=== PATIENT | male | born 1945 | race Hispanic/Latino ===

== ENCOUNTER 2019-05-09 16:07 | Emergency (ER) | payer MEDICARE ==
--- NOTE | 2019-05-09 16:56 | Emergency Department Report ---
Blank Doc - Documentation Documentation: 73-year-old male that presents with a-fib. Denies any CP or SOB. HX of a-fib. This initial assessment/diagnostic orders/clinical plan/treatment(s) is/are subject to change based on patient's health status, clinical progression and re- assessment by fellow clinical providers in the ED. Further treatment and workup at subsequent clinical providers discretion. Patient/guardians urged not to elope from the ED as their condition may be serious if not clinically assessed and managed. Initial orders include: 1- Patient sent to MAIN ED for further evaluation and treatment 2- labs 3- EKG 4- CXR
--- NOTE | 2019-05-09 18:02 | XRay Report ---
CHEST 2 VIEWS INDICATION / CLINICAL INFORMATION: Chest Pain. COMPARISON: 03/24/2018 FINDINGS: SUPPORT DEVICES: None. HEART / MEDIASTINUM: No significant abnormality. LUNGS / PLEURA: No significant pulmonary or pleural abnormality. No pneumothorax. ADDITIONAL FINDINGS: No significant additional findings. IMPRESSION: 1. No acute findings. Signer Name: Zack Reinoso MD Signed: 05/09/2019 5:57 PM Workstation Name: [id number]
[2019-05-09 18:31] LABS: Basophils % (Auto) 0.2 % (0.0-1.8); Eosinophils # (Auto) 0.1 K/mm3 (0.0-0.4); Eosinophils % (Auto) 2.5 % (0.0-4.3); Hematocrit 44.2 % (35.5-45.6); Hemoglobin 15.1 gm/dl (11.8-15.2); Lymphocytes # (Auto) 1.7 K/mm3 (1.2-5.4); Lymphocytes % (Auto) 29.6 % (13.4-35.0); Mean Corpuscular HGB Conc 34 % (32-34); Mean Corpuscular Volume 91 fl (84-94); Monocytes # (Auto) 0.7 K/mm3 (0.0-0.8); Monocytes % (Auto) 11.7 % (0.0-7.3); Platelet Count 220 K/mm3 (140-440); Red Blood Count 4.87 M/mm3 (3.65-5.03); Red Cell Distribution Width 13.9 % (13.2-15.2)
[2019-05-09] MEDS ORDERED: NACL 0.9% 1000 ML 1,000 ML IV ONE (18:38)
[2019-05-09 18:56] LABS: Alanine Aminotransferase 26 units/L (7-56); BUN/Creatinine Ratio 18; Blood Urea Nitrogen 14 mg/dL (9-20); Calcium 8.9 mg/dL (8.4-10.2); Hemolysis Index 6
[2019-05-09 19:12] LABS: INR 1.02 (0.87-1.13)
[2019-05-09 19:20] LABS: Partial Thromboplastin Time 27.1 Sec. (24.2-36.6)
[2019-05-09 21:00] VITALS: BP 119/74
--- NOTE | 2019-05-09 21:06 | Emergency Department Report ---
ED Palpitations HPI - General Chief Complaint: Arrhythmia/Palpitations Stated Complaint: A FIB Time Seen by Provider: 05/09/19 18:34 Source: patient Mode of arrival: Ambulatory Limitations: No Limitations - History of Present Illness Initial Comments: Patient is a 73-year-old male with a past medical history of a paroxysmal atrial fibrillation that was diagnosed in March 2018 and resolved spontaneously who is presenting with palpitations. Patient states he was on anticoagulation for 3 miles. Patient states that he's been taking extended release metoprolol and is taking alternating doses of 12.5 and 25 mg daily. Patient states that earlier today he started having palpitations with mild shortness of breath. Patient denies chest pain cough cold congestion fevers or chills. Patient has some mild dizziness when the heart rate elevated.. - Related Data Home Medications Medication Instructions Recorded Confirmed Last Taken Ascorbic Acid [Vitamin C] 1,000 mg PO QDAY 03/28/18 03/28/18 Unknown Aspirin [Adult Aspirin] 81 mg PO BID 03/28/18 03/28/18 Unknown Cetirizine HCl [ZyrTEC 10mg cap] 10 mg PO QDAY 03/28/18 03/28/18 Unknown Cholecalciferol (Vitamin D3) 2,000 units PO QDAY 03/28/18 03/28/18 Unknown [Vitamin D3 2,000 UNIT CAP] Cyanocobalamin (Vitamin B-12) 1,000 mcg PO QDAY 03/28/18 03/28/18 Unknown [Vitamin B-12] Folic Acid [Folvite] 800 mcg PO QDAY 03/28/18 03/28/18 Unknown Glucosam/Chavez-Msm1/C/Ezra/Bosw 1,500 mg PO QDAY 03/28/18 03/28/18 Unknown [Glucosamine-Chondroitin Tablet] Lisinopril [Prinivil] 10 mg PO QDAY 03/28/18 03/28/18 Unknown Magnesium Citrate 200 mg PO TID 03/28/18 03/28/18 Unknown Multivit with Minerals/Lutein [Pub 1 tab PO QDAY 03/28/18 03/28/18 Unknown Multivitamin 50 Plus Tab] [place]-3 Fatty Acids/Fish Oil [Fish 1,000 mg PO TID 03/28/18 03/28/18 Unknown Oil] Ubidecarenone [Coq-10] 10 mg PO QDAY 03/28/18 03/28/18 Unknown Vit A/Vit C/Vit E/Zinc/Copper 1 tab PO BID 03/28/18 03/28/18 Unknown [Icaps Areds Formula Dr Tablet] Vit B6/Me-Thfolate/Me-B12/Ala 50 mg PO QDAY 03/28/18 03/28/18 Unknown [Podiapn Capsule] Vitamin E 400 unit PO QDAY 03/28/18 03/28/18 Unknown metFORMIN [Glucophage] 500 mg PO TID 03/28/18 03/28/18 Unknown Previous Rx's Medication Instructions Recorded Last Taken Type Apixaban [Eliquis] 5 mg PO Q12H #60 tablet 05/09/19 Unknown Rx Metoprolol [Lopressor TAB] 12.5 mg PO BID #60 tablet 05/09/19 Unknown Rx Allergies Allergy/AdvReac Type Severity Reaction Status Date / Time simvastatin Allergy Nausea Verified 03/28/18 05:43 ED Review of Systems ROS: Stated complaint: A FIB Other details as noted in HPI Comment: All other systems reviewed and negative ED Past Medical Hx - Past Medical History Previous Medical History?: Yes Hx Congestive Heart Failure: No Hx Diabetes: Yes Hx Arthritis: Yes Hx Asthma: No Hx COPD: No Additional medical history: A fib - Surgical History Past Surgical History?: Yes Additional Surgical History: right ankle surgery after ankle fx - Social History Smoking Status: Never Smoker Substance Use Type: Alcohol - Medications Home Medications: Home Medications Medication Instructions Recorded Confirmed Last Taken Type Ascorbic Acid [Vitamin C] 1,000 mg PO QDAY 03/28/18 03/28/18 Unknown History Aspirin [Adult Aspirin] 81 mg PO BID 03/28/18 03/28/18 Unknown History Cetirizine HCl [ZyrTEC 10mg cap] 10 mg PO QDAY 03/28/18 03/28/18 Unknown History Cholecalciferol (Vitamin D3) 2,000 units PO QDAY 03/28/18 03/28/18 Unknown History [Vitamin D3 2,000 UNIT CAP] Cyanocobalamin (Vitamin B-12) 1,000 mcg PO QDAY 03/28/18 03/28/18 Unknown History [Vitamin B-12] Folic Acid [Folvite] 800 mcg PO QDAY 03/28/18 03/28/18 Unknown History Glucosam/Chavez-Msm1/C/Ezra/Bosw 1,500 mg PO QDAY 03/28/18 03/28/18 Unknown History [Glucosamine-Chondroitin Tablet] Lisinopril [Prinivil] 10 mg PO QDAY 03/28/18 03/28/18 Unknown History Magnesium Citrate 200 mg PO TID 03/28/18 03/28/18 Unknown History Multivit with Minerals/Lutein [Pub 1 tab PO QDAY 03/28/18 03/28/18 Unknown History Multivitamin 50 Plus Tab] [place]-3 Fatty Acids/Fish Oil [Fish 1,000 mg PO TID 03/28/18 03/28/18 Unknown History Oil] Ubidecarenone [Coq-10] 10 mg PO QDAY 03/28/18 03/28/18 Unknown History Vit A/Vit C/Vit E/Zinc/Copper 1 tab PO BID 03/28/18 03/28/18 Unknown History [Icaps Areds Formula Dr Tablet] Vit B6/Me-Thfolate/Me-B12/Ala 50 mg PO QDAY 03/28/18 03/28/18 Unknown History [Podiapn Capsule] Vitamin E 400 unit PO QDAY 03/28/18 03/28/18 Unknown History metFORMIN [Glucophage] 500 mg PO TID 03/28/18 03/28/18 Unknown History Apixaban [Eliquis] 5 mg PO Q12H #60 tablet 05/09/19 Unknown Rx Metoprolol [Lopressor TAB] 12.5 mg PO BID #60 tablet 05/09/19 Unknown Rx ED Physical Exam - General Limitations: No Limitations General appearance: alert, in no apparent distress - Head Head exam: Present: atraumatic, normocephalic - Eye Eye exam: Present: normal appearance - ENT ENT exam: Present: mucous membranes moist - Neck Neck exam: Present: normal inspection - Respiratory Respiratory exam: Present: normal lung sounds bilaterally. Absent: respiratory distress, wheezes, rales, rhonchi - Cardiovascular Cardiovascular Exam: Present: normal rhythm, tachycardia, irregular rhythm. Absent: systolic murmur, diastolic murmur, rubs, gallop - GI/Abdominal GI/Abdominal exam: Present: soft, normal bowel sounds. Absent: distended, tenderness, guarding, rebound - Rectal Rectal exam: Present: deferred - Extremities Exam Extremities exam: Present: normal inspection - Back Exam Back exam: Present: normal inspection - Neurological Exam Neurological exam: Present: alert, oriented X3 - Psychiatric Psychiatric exam: Present: normal affect, normal mood - Skin Skin exam: Present: warm, dry, intact, normal color. Absent: rash ED Course Vital Signs 05/09/19 05/09/19 05/09/19 16:47 17:48 19:04 Temperature 98.2 F Pulse Rate 97 H 80 Respiratory 17 16 18 Rate Blood Pressure 119/65 Blood Pressure 117/90 [Left] O2 Sat by Pulse 96 96 95 Oximetry 05/09/19 20:59 Temperature Pulse Rate 87 Respiratory 20 Rate Blood Pressure Blood Pressure 119/74 [Left] O2 Sat by Pulse 96 Oximetry ED Medical Decision Making - Lab Data Result diagrams: 05/09/19 17:57 05/09/19 17:57 - EKG Data -: EKG Interpreted by [place] - EKG Data 05/09/19 21:03 EKG shows a atrial fibrillation rhythm with a rate of 86. [place] is normal and intervals are normal as well. There is no evidence of ST segment elevation or depression. Time of interpretation is 1937 - Radiology Data Radiology results: report reviewed (chest x-ray is within normal limits and shows no acute process) - Medical Decision Making Patient took a 25 mg metoprolol prior to arrival and his rate is actually been within normal limits since he's been here. Patient states that he is asymptomatic at this time. Spoke with cardiology Dr. Patel who agreed that the patient should be restarted umbilicus. Patient to be started on 12.5 mg of metoprolol BID to better control his heart rate and the patient will have follow with his claims auditor. Critical care attestation.: If time is entered above; I have spent that time in minutes in the direct care of this critically ill patient, excluding procedure time. ED Disposition Clinical Impression: Atrial fibrillation with rapid ventricular response Disposition: -01 TO HOME OR SELFCARE Is pt being admited?: No Does the pt Need Aspirin: No Condition: Stable Instructions: Atrial Fibrillation (ED) Prescriptions: Apixaban [Eliquis] 5 mg PO Q12H #60 tablet Metoprolol [Lopressor TAB] 12.5 mg PO BID #60 tablet
== END 2019-05-09 21:34 | disposition home or self-care (01) ==
LOC: ED 16:07
DX: I48.91 Unspecified atrial fibrillation (principal); R42 Dizziness and giddiness; I10 Essential (primary) hypertension; E11.9 Type 2 diabetes mellitus without complications; M19.90 Unspecified osteoarthritis, unspecified site; Z98.890 Other specified postprocedural states; Z79.899 Other long term (current) drug therapy; Z88.8 Allergy status to other drugs, medicaments and biological substances; Z79.84 Long term (current) use of oral hypoglycemic drugs
CPT/HCPCS: 36415; 71046; 80053; 84484; 85025; 85610; 85730; 93005; 93010; 96360; 99284; J7030

== ENCOUNTER 2019-07-20 18:32 | Observation (INO) | payer MEDICARE ==
--- NOTE | 2019-07-20 18:50 | Event Note ---
ED Screening Note Date of service: 07/20/19 Time: 18:45 ED Screening Note: 74 y o presents after going to [facility] to ekg resulted in a fib no cp, sob, PMH: a fib This initial assessment/diagnostic orders/clinical plan/treatment(s) is/are subject to change based on patients health status, clinical progression and re- assessment by fellow clinical providers in the ED. Further treatment and workup at subsequent clinical providers discretion. Patient/guardian urged not to elope from the ED as their condition may be serious if not clinically assessed and managed. Initial orders include: labs main side eval
[2019-07-20 19:43] LABS: Basophils % (Auto) 0.4 % (0.0-1.8); Eosinophils # (Auto) 0.2 K/mm3 (0.0-0.4); Eosinophils % (Auto) 2.4 % (0.0-4.3); Hematocrit 44.8 % (35.5-45.6); Hemoglobin 15.4 gm/dl (11.8-15.2); Lymphocytes # (Auto) 2.3 K/mm3 (1.2-5.4); Lymphocytes % (Auto) 33.3 % (13.4-35.0); Mean Corpuscular HGB Conc 34 % (32-34); Mean Corpuscular Volume 92 fl (84-94); Monocytes # (Auto) 0.7 K/mm3 (0.0-0.8); Monocytes % (Auto) 10.1 % (0.0-7.3); Platelet Count 222 K/mm3 (140-440); Red Blood Count 4.89 M/mm3 (3.65-5.03)
[2019-07-20 19:54] LABS: INR 0.93 (0.87-1.13)
[2019-07-20 20:00] LABS: BUN/Creatinine Ratio 19; Blood Urea Nitrogen 15 mg/dL (9-20); Calcium 8.9 mg/dL (8.4-10.2); Hemolysis Index 50
--- NOTE | 2019-07-20 21:29 | Emergency Department Report ---
ED Palpitations HPI - General Chief Complaint: Arrhythmia/Palpitations Stated Complaint: AFIB Time Seen by Provider: 07/20/19 21:11 Source: patient Mode of arrival: Ambulatory Limitations: No Limitations - History of Present Illness Initial Comments: Patient is a 74-year-old male who presents the emergency room with complaints of palpitations that began 2 days ago. He states that he occasionally feels SOB during the palpitations. He denies any chest pain, leg swelling, syncope. Patient has a past medical history of paroxysmal A. fib diagnosed in 2017, hypertension, diabetes. he was evaluated in the emergency department in april 2019 for the same complaint and was started on metoprolol 25 mg and eliquis. Patient states that he has been taking the metoprolol as prescribed but never began taking the Eliquis. He states that he saw his forest nursery worker Dr. Garces after his emergency room visit in April 2019 and elected to not take the eliquis therapy. Patient had a heart catheterization which show mild nonobstructive irregularites and EF of 50-55% and echo in 2017. - Related Data Home Medications Medication Instructions Recorded Confirmed Last Taken Ascorbic Acid [Vitamin C] 1,000 mg PO QDAY 03/28/18 07/21/19 Unknown Cetirizine HCl [ZyrTEC 10mg cap] 10 mg PO QDAY 03/28/18 07/21/19 Unknown Cholecalciferol (Vitamin D3) 2,000 units PO QDAY 03/28/18 07/21/19 Unknown [Vitamin D3 2,000 UNIT CAP] Cyanocobalamin (Vitamin B-12) 1,000 mcg PO QDAY 03/28/18 07/21/19 Unknown [Vitamin B-12] Folic Acid [Folvite] 800 mcg PO QDAY 03/28/18 07/21/19 Unknown Glucosam/Chavez-Msm1/C/Ezra/Bosw 1,500 mg PO QDAY 03/28/18 07/21/19 Unknown [Glucosamine-Chondroitin Tablet] Magnesium Citrate 200 mg PO TID 03/28/18 07/21/19 Unknown Multivit with Minerals/Lutein [Pub 1 tab PO QDAY 03/28/18 07/21/19 Unknown Multivitamin 50 Plus Tab] [place]-3 Fatty Acids/Fish Oil [Fish 1,000 mg PO TID 03/28/18 07/21/19 Unknown Oil] Ubidecarenone [Coq-10] 10 mg PO QDAY 03/28/18 07/21/19 Unknown Vit A/Vit C/Vit E/Zinc/Copper 1 tab PO BID 03/28/18 07/21/19 Unknown [Icaps Areds Formula Dr Tablet] Vit B6/Me-Thfolate/Me-B12/Ala 50 mg PO QDAY 03/28/18 07/21/19 Unknown [Podiapn Capsule] Vitamin E 400 unit PO QDAY 03/28/18 07/21/19 Unknown lisinopriL [Prinivil] 10 mg PO QDAY 03/28/18 07/21/19 Unknown metFORMIN [Glucophage] 500 mg PO TID 03/28/18 07/21/19 Unknown Previous Rx's Medication Instructions Recorded Last Taken Type Metoprolol [Lopressor TAB] 12.5 mg PO BID #60 tablet 05/09/19 Unknown Rx Amiodarone [Cordarone 200 MG TAB] 200 mg PO DAILY #30 tablet 07/21/19 Unknown Rx Apixaban [Eliquis] 5 mg PO Q12H #60 tablet 07/21/19 Unknown Rx Allergies Allergy/AdvReac Type Severity Reaction Status Date / Time simvastatin Allergy Nausea Verified 03/28/18 05:43 ED Review of Systems ROS: Stated complaint: AFIB Other details as noted in HPI ED Past Medical Hx - Past Medical History Previous Medical History?: Yes Hx Congestive Heart Failure: No Hx Diabetes: Yes Hx Arthritis: Yes Hx Asthma: No Hx COPD: No Additional medical history: A fib - Surgical History Past Surgical History?: Yes Additional Surgical History: right ankle surgery after ankle fx - Social History Smoking Status: Never Smoker Substance Use Type: Alcohol - Medications Home Medications: Home Medications Medication Instructions Recorded Confirmed Last Taken Type Ascorbic Acid [Vitamin C] 1,000 mg PO QDAY 03/28/18 07/21/19 Unknown History Cetirizine HCl [ZyrTEC 10mg cap] 10 mg PO QDAY 03/28/18 07/21/19 Unknown History Cholecalciferol (Vitamin D3) 2,000 units PO QDAY 03/28/18 07/21/19 Unknown History [Vitamin D3 2,000 UNIT CAP] Cyanocobalamin (Vitamin B-12) 1,000 mcg PO QDAY 03/28/18 07/21/19 Unknown History [Vitamin B-12] Folic Acid [Folvite] 800 mcg PO QDAY 03/28/18 07/21/19 Unknown History Glucosam/Chavez-Msm1/C/Ezra/Bosw 1,500 mg PO QDAY 03/28/18 07/21/19 Unknown History [Glucosamine-Chondroitin Tablet] Magnesium Citrate 200 mg PO TID 03/28/18 07/21/19 Unknown History Multivit with Minerals/Lutein [Pub 1 tab PO QDAY 03/28/18 07/21/19 Unknown History Multivitamin 50 Plus Tab] [place]-3 Fatty Acids/Fish Oil [Fish 1,000 mg PO TID 03/28/18 07/21/19 Unknown History Oil] Ubidecarenone [Coq-10] 10 mg PO QDAY 03/28/18 07/21/19 Unknown History Vit A/Vit C/Vit E/Zinc/Copper 1 tab PO BID 03/28/18 07/21/19 Unknown History [Icaps Areds Formula Dr Tablet] Vit B6/Me-Thfolate/Me-B12/Ala 50 mg PO QDAY 03/28/18 07/21/19 Unknown History [Podiapn Capsule] Vitamin E 400 unit PO QDAY 03/28/18 07/21/19 Unknown History lisinopriL [Prinivil] 10 mg PO QDAY 03/28/18 07/21/19 Unknown History metFORMIN [Glucophage] 500 mg PO TID 03/28/18 07/21/19 Unknown History Metoprolol [Lopressor TAB] 12.5 mg PO BID #60 tablet 05/09/19 07/21/19 Unknown Rx Amiodarone [Cordarone 200 MG TAB] 200 mg PO DAILY #30 tablet 07/21/19 Unknown Rx Apixaban [Eliquis] 5 mg PO Q12H #60 tablet 07/21/19 Unknown Rx ED Physical Exam - General Limitations: No Limitations General appearance: alert, in no apparent distress - Head Head exam: Present: atraumatic, normocephalic - Eye Eye exam: Present: normal appearance - ENT ENT exam: Present: mucous membranes moist - Respiratory Respiratory exam: Present: normal lung sounds bilaterally. Absent: respiratory distress, wheezes, rales, rhonchi, stridor, chest wall tenderness, accessory muscle use, decreased breath sounds, prolonged expiratory - Cardiovascular Cardiovascular Exam: Present: regular rate, irregular rhythm, normal heart sounds. Absent: systolic murmur, diastolic murmur, rubs, gallop - Extremities Exam Extremities exam: Absent: pedal edema - Neurological Exam Neurological exam: Present: alert, oriented X3 - Psychiatric Psychiatric exam: Present: normal affect, normal mood - Skin Skin exam: Present: warm, dry, intact ED Course Vital Signs 07/20/19 07/20/19 07/20/19 18:46 21:20 21:23 Temperature 97.3 F L Pulse Rate 100 H Respiratory 16 18 Rate Blood Pressure 120/76 108/65 Blood Pressure [Left] O2 Sat by Pulse 100 100 99 Oximetry 07/20/19 07/20/19 07/20/19 21:30 21:45 21:57 Temperature Pulse Rate 76 79 78 Respiratory 24 17 18 Rate Blood Pressure 111/77 111/77 111/77 Blood Pressure [Left] O2 Sat by Pulse 97 97 97 Oximetry 07/20/19 07/20/19 07/20/19 22:00 22:15 22:30 Temperature Pulse Rate 77 Respiratory 19 Rate Blood Pressure 111/77 127/79 114/78 Blood Pressure [Left] O2 Sat by Pulse 98 97 Oximetry 07/20/19 07/20/19 07/20/19 22:45 23:00 23:03 Temperature Pulse Rate 79 83 73 Respiratory 25 H 22 Rate Blood Pressure 114/78 123/84 Blood Pressure 130/81 [Left] O2 Sat by Pulse 97 97 Oximetry 07/20/19 07/20/19 07/20/19 23:15 23:30 23:45 Temperature Pulse Rate 65 65 48 L Respiratory 23 22 16 Rate Blood Pressure 122/74 119/77 137/71 Blood Pressure [Left] O2 Sat by Pulse 99 99 100 Oximetry 07/21/19 07/21/19 07/21/19 00:00 00:15 00:30 Temperature Pulse Rate 55 L 56 L 57 L Respiratory 17 23 19 Rate Blood Pressure 108/68 105/65 109/66 Blood Pressure [Left] O2 Sat by Pulse 100 98 99 Oximetry 07/21/19 00:45 Temperature Pulse Rate 57 L Respiratory 17 Rate Blood Pressure 97/56 Blood Pressure [Left] O2 Sat by Pulse 98 Oximetry - Consultations Consultation #1: 07/20/19 22:[address] Weaver, cardiology, who states to admit the patient due to s ymptomatic PAF, he recommended giving the patient 300 mg IV of amiodarone now and to start pt on PO amiodarone 200 mg daily and he will evaluate pt in the hospital during admission, advised to admit to hospitalist, he states that they can start anticoagulation while in the hospital Consultation #2: 07/20/19 22:[address] Su, hospitalist and discussed the forest nursery worker recommendations, she will accept and resume care of patient, will admit to hospital ED Medical Decision Making - Lab Data Result diagrams: 07/20/19 19:18 07/20/19 19:18 Lab Results 07/20/19 07/20/19 07/20/19 Range/Units 00:30 19:18 19:18 WBC 6.9 (4.5-11.0) K/mm3 RBC 4.89 (3.65-5.03) M/mm3 Hgb 15.4 H (11.8-15.2) gm/dl Hct 44.8 (35.5-45.6) % MCV 92 (84-94) fl MCH 31 (28-32) pg MCHC 34 (32-34) % RDW 14.0 (13.2-15.2) % Plt Count 222 (140-440) K/mm3 Lymph % (Auto) 33.3 (13.4-35.0) % [place] % (Auto) 10.1 H (0.0-7.3) % Eos % (Auto) 2.4 (0.0-4.3) % Baso % (Auto) 0.4 (0.0-1.8) % Lymph # 2.3 (1.2-5.4) K/mm3 [place] # 0.7 (0.0-0.8) K/mm3 Eos # 0.2 (0.0-0.4) K/mm3 Baso # 0.0 (0.0-0.1) K/mm3 Seg Neutrophils % 53.8 (40.0-70.0) % Seg Neutrophils # 3.7 (1.8-7.7) K/mm3 PT 12.6 (12.2-14.9) Sec. INR 0.93 (0.87-1.13) Sodium (137-145) mmol/L Potassium (3.6-5.0) mmol/L Chloride (98-107) mmol/L Carbon Dioxide (22-30) mmol/L Anion Gap mmol/L BUN (9-20) mg/dL Creatinine (0.8-1.5) mg/dL Estimated GFR ml/min BUN/Creatinine Ratio % Glucose (75-100) mg/dL Hemoglobin A1c 8.6 H (4-6) % Calcium (8.4-10.2) mg/dL Magnesium (1.7-2.3) mg/dL Total Creatine Kinase (55-170) units/L CK-MB (CK-2) (0.0-4.0) ng/mL CK-MB (CK-2) Rel Index (0-4) Troponin T (0.00-0.029) ng/mL TSH (0.270-4.200) mlU/mL 07/20/19 07/20/19 Range/Units 19:18 19:18 WBC (4.5-11.0) K/mm3 RBC (3.65-5.03) M/mm3 Hgb (11.8-15.2) gm/dl Hct (35.5-45.6) % MCV (84-94) fl MCH (28-32) pg MCHC (32-34) % RDW (13.2-15.2) % Plt Count (140-440) K/mm3 Lymph % (Auto) (13.4-35.0) % [place] % (Auto) (0.0-7.3) % Eos % (Auto) (0.0-4.3) % Baso % (Auto) (0.0-1.8) % Lymph # (1.2-5.4) K/mm3 [place] # (0.0-0.8) K/mm3 Eos # (0.0-0.4) K/mm3 Baso # (0.0-0.1) K/mm3 Seg Neutrophils % (40.0-70.0) % Seg Neutrophils # (1.8-7.7) K/mm3 PT (12.2-14.9) Sec. INR (0.87-1.13) Sodium 136 L (137-145) mmol/L Potassium 4.6 (3.6-5.0) mmol/L Chloride 97.9 L (98-107) mmol/L Carbon Dioxide 27 (22-30) mmol/L Anion Gap 16 mmol/L BUN 15 (9-20) mg/dL Creatinine 0.8 (0.8-1.5) mg/dL Estimated GFR > 60 ml/min BUN/Creatinine Ratio 19 % Glucose 219 H (75-100) mg/dL Hemoglobin A1c (4-6) % Calcium 8.9 (8.4-10.2) mg/dL Magnesium 2.40 H (1.7-2.3) mg/dL Total Creatine Kinase 80 (55-170) units/L CK-MB (CK-2) 2.0 (0.0-4.0) ng/mL CK-MB (CK-2) Rel Index 2.5 (0-4) Troponin T < 0.010 (0.00-0.029) ng/mL TSH 2.950 (0.270-4.200) mlU/mL - EKG Data EKG shows normal: axis, intervals, QRS complexes Rate: normal - EKG Data 07/20/19 22:13 irregular rate non specific T wave inversion diffusely no STEMI - Medical Decision Making Patient is a 74-year-old male who presents the emergency room with complaints of palpitations that began 2 days ago. He states that he occasionally feels SOB during the palpitations. He denies any chest pain, leg swelling, syncope. Patient has a past medical history of paroxysmal A. fib diagnosed in 2017, hypertension, diabetes. he was evaluated in the emergency department in april 2019 for the same complaint and was started on metoprolol 25 mg and eliquis. Patient states that he has been taking the metoprolol as prescribed but never began taking the Eliquis. He states that he saw his forest nursery worker Dr. Garces after his emergency room visit in April 2019 and elected to not take the eliquis therapy. Patient had a heart catheterization which show mild nonobstructive irregularites and EF of 50-55% and echo in 2018. initial vitals with mildly elevated HR which improved upon repeat. EKG with afib with controlled rate. labs are stable. spoke with Dr. Wevaer, cardiology, who states to admit the patient due to symptomatic PAF, he recommended giving the patient 300 mg IV of amiodarone now and to start pt on PO amiodarone 200 mg daily and he will evaluate pt in the hospital during admission, advised to admit to [facility], he states that they can start anticoagulation while in the hospital. spoke with Dr. Su, hospitalist and discussed the forest nursery worker recommendations, she will accept and resume care of patient, will admit to hospital Critical care attestation.: If time is entered above; I have spent that time in minutes in the direct care of this critically ill patient, excluding procedure time. ED Disposition Clinical Impression: Paroxysmal A-fib Disposition: [id number] OP ADMIT IP TO THIS HOSP Is pt being admited?: Yes Does the pt Need Aspirin: No Condition: Stable Time of Disposition: 22:12
[2019-07-20] MEDS ORDERED: AMIODARONE 150 MG/3 ML INJ IV ONE ×2 (22:02→22:57)
[2019-07-20] MEDS ORDERED: DEXTROSE 50% IN WATER (25GM) 50 ML SYRINGE IV PRN (22:30)
[2019-07-20] MEDS ORDERED: ALBUTEROL 2.5 MG/3 ML NEBU IH PRN (22:30)
[2019-07-20] MEDS ORDERED: ONDANSETRON 4 MG/2 ML INJ IV PRN (22:30)
[2019-07-20] MEDS ORDERED: ACETAMINOPHEN 325 MG TAB PO PRN (22:30)
--- NOTE | 2019-07-20 22:59 | History and Physical Report ---
<ELIZABETHANALI Raman - Last Filed: 07/20/19 23:36> History of Present Illness Date of examination: 07/20/19 Date of admission: 07/20/2019 Chief complaint: Palpitations, shortness of breath History of present illness: 73-year-old male with history of paroxysmal atrial fibrillation, hypertension, diabetes who presents to [facility] ED with complaints of shortness of breath and palpitation for the last 3 days. Patient's is present at his bedside and has assisted with providing history. Patient states that he has experienced shortness of breath and palpitation in the morning shortly after getting out of bed for the last 3 days. His shortness of breath resolved as the day progressed. He continued to check his pulse throughout the day and found his pulse to be irregular. Patient states that he has a history of A. fib and he is compliant with metoprolol. He states that his irregular heartbeat (atrial fibrillation) usually comes and goes approximately every 2 to 3 months, and for the most part he is in sinus rhythm. He decided come in for further evaluation and treatment because his irregular heart rate had lasted for 3 days. After being diagnosed with atrial fibrillation in 2018, he was on Eliquis for approximately 3 months. He discussed rsk and benefits it with Dr. Garces before d/c Eliquis. Denies dyspnea with exertion, headache, fever, nausea, vomiting, cough, hemoptysis, or hematemesis. Review of medical record shows patient was seen in ED in May 08 with similar complaints. He was discharged with prescription for metoprolol 25 mg twice daily and Eliquis. Pt states he was compliant with metoprolol treatment but decided not to fill the prescription for Eliquis. Past History Past Medical History: atrial fib (Paroxysmal), diabetes, hypertension Past Surgical History: Other (right ankle surgery ) Social history: , full code. denies: smoking, alcohol abuse Family history: no significant family history Medications and Allergies Allergies Allergy/AdvReac Type Severity Reaction Status Date / Time simvastatin Allergy Nausea Verified 03/28/18 05:43 Home Medications Medication Instructions Recorded Confirmed Last Taken Type Ascorbic Acid [Vitamin C] 1,000 mg PO QDAY 03/28/18 07/21/19 Unknown History Aspirin [Adult Aspirin] 81 mg PO BID 03/28/18 07/21/19 Unknown History Cetirizine HCl [ZyrTEC 10mg cap] 10 mg PO QDAY 03/28/18 07/21/19 Unknown History Cholecalciferol (Vitamin D3) 2,000 units PO QDAY 03/28/18 07/21/19 Unknown History [Vitamin D3 2,000 UNIT CAP] Cyanocobalamin (Vitamin B-12) 1,000 mcg PO QDAY 03/28/18 07/21/19 Unknown History [Vitamin B-12] Folic Acid [Folvite] 800 mcg PO QDAY 03/28/18 07/21/19 Unknown History Glucosam/Chavez-Msm1/C/Ezra/Bosw 1,500 mg PO QDAY 03/28/18 07/21/19 Unknown History [Glucosamine-Chondroitin Tablet] Magnesium Citrate 200 mg PO TID 03/28/18 07/21/19 Unknown History Multivit with Minerals/Lutein [Pub 1 tab PO QDAY 03/28/18 07/21/19 Unknown History Multivitamin 50 Plus Tab] [place]-3 Fatty Acids/Fish Oil [Fish 1,000 mg PO TID 03/28/18 07/21/19 Unknown History Oil] Ubidecarenone [Coq-10] 10 mg PO QDAY 03/28/18 07/21/19 Unknown History Vit A/Vit C/Vit E/Zinc/Copper 1 tab PO BID 03/28/18 07/21/19 Unknown History [Icaps Areds Formula Dr Tablet] Vit B6/Me-Thfolate/Me-B12/Ala 50 mg PO QDAY 03/28/18 07/21/19 Unknown History [Podiapn Capsule] Vitamin E 400 unit PO QDAY 03/28/18 07/21/19 Unknown History lisinopriL [Prinivil] 10 mg PO QDAY 03/28/18 07/21/19 Unknown History metFORMIN [Glucophage] 500 mg PO TID 03/28/18 07/21/19 Unknown History Apixaban [Eliquis] 5 mg PO Q12H #60 tablet 05/09/19 07/21/19 Unknown Rx Metoprolol [Lopressor TAB] 12.5 mg PO BID #60 tablet 05/09/19 07/21/19 Unknown Rx Active Meds: Active Medications Acetaminophen (Tylenol) 650 mg PO Q4H PRN PRN Reason: Pain MILD(1-3)/Fever >100.5/CAMP Albuterol (Proventil) 2.5 mg IH Q3HRT PRN PRN Reason: Shortness Of Breath Amiodarone HCl (Cordarone) 200 mg PO DAILY [facility] Dextrose (D50w (25gm) Syringe) 0 ml IV Q30MIN PRN; Protocol PRN Reason: Hypoglycemia Docusate Sodium (Colace) 100 mg PO BID [facility] Heparin Sodium (Porcine) (Heparin) 5,000 unit SUB-Q Q12HR [facility] Insulin Human Lispro (Humalog) 0 unit SUB-Q ACHS ERIN; Protocol Metformin HCl (Glucophage) 500 mg PO TIDWM [facility] Metoprolol Tartrate (Metoprolol) 12.5 mg PO BID [facility] Ondansetron HCl (Zofran) 4 mg IV Q8H PRN PRN Reason: Nausea And Vomiting Sodium Chloride (Sodium Chloride Flush Syringe 10 Ml) 10 ml IV BID ERIN Sodium Chloride (Sodium Chloride Flush Syringe 10 Ml) 10 ml IV PRN PRN PRN Reason: LINE FLUSH Review of Systems All systems: negative Cardiovascular: palpitations, shortness of breath Exam - Physical Exam Narrative exam: Physical exam General appearance: Present: No acute distress, alert and oriented 3, obese, well-developed, older adult male - EENT Eyes: Present: PERRL, EOM intact ENT: hearing intact, normal dentition - Neck Neck: Present: supple, normal ROM - Respiratory Respiratory effort: Non-labored Respiratory: Clear throughout - Cardiovascular Heart rate: 85 (bpm) Rhythm: Atrial fibrillation Heart Sounds: Present: S1 & S2. Absent: rub, click - Extremities Extremities: no ischemia, pulses intact, - Peripheral Assessment Peripheral Pulses: within normal limits - Abdominal General gastrointestinal: Obese, soft, non-tender, normal bowel sounds - Integumentary Integumentary: Present: warm, dry - Musculoskeletal Musculoskeletal: Able to move all extremities -Neurological Neurological: CN II-XII intact - Psychiatric Psychiatric: Appropriate for situation ,cooperative - Constitutional Vitals: Temp Pulse Resp BP Pulse Ox 97.3 F L 79 17 111/77 97 07/20/19 18:46 07/20/19 21:45 07/20/19 21:45 07/20/19 21:45 07/20/19 21:45 Results - Labs CBC & Chem 7: 07/20/19 19:18 07/20/19 19:18 Labs: Laboratory Last Values WBC 6.9 K/mm3 (4.5-11.0) 07/20/19 19:18 RBC 4.89 M/mm3 (3.65-5.03) 07/20/19 19:18 Hgb 15.4 gm/dl (11.8-15.2) H 07/20/19 19:18 Hct 44.8 % (35.5-45.6) 07/20/19 19:18 MCV 92 fl (84-94) 07/20/19 19:18 MCH 31 pg (28-32) 07/20/19 19:18 MCHC 34 % (32-34) 07/20/19 19:18 RDW 14.0 % (13.2-15.2) 07/20/19 19:18 Plt Count 222 K/mm3 (140-440) 07/20/19 19:18 Lymph % (Auto) 33.3 % (13.4-35.0) 07/20/19 19:18 [place] % (Auto) 10.1 % (0.0-7.3) H 07/20/19 19:18 Eos % (Auto) 2.4 % (0.0-4.3) 07/20/19 19:18 Baso % (Auto) 0.4 % (0.0-1.8) 07/20/19 19:18 Lymph # 2.3 K/mm3 (1.2-5.4) 07/20/19 19:18 [place] # 0.7 K/mm3 (0.0-0.8) 07/20/19 19:18 Eos # 0.2 K/mm3 (0.0-0.4) 07/20/19 19:18 Baso # 0.0 K/mm3 (0.0-0.1) 07/20/19 19:18 Seg Neutrophils % 53.8 % (40.0-70.0) 07/20/19 19:18 Seg Neutrophils # 3.7 K/mm3 (1.8-7.7) 07/20/19 19:18 PT 12.6 Sec. (12.2-14.9) 07/20/19 19:18 INR 0.93 (0.87-1.13) 07/20/19 19:18 Sodium 136 mmol/L (137-145) L 07/20/19 19:18 Potassium 4.6 mmol/L (3.6-5.0) 07/20/19 19:18 Chloride 97.9 mmol/L (98-107) L 07/20/19 19:18 Carbon Dioxide 27 mmol/L (22-30) 07/20/19 19:18 Anion Gap 16 mmol/L 07/20/19 19:18 BUN 15 mg/dL (9-20) 07/20/19 19:18 Creatinine 0.8 mg/dL (0.8-1.5) 07/20/19 19:18 Estimated GFR > 60 ml/min 07/20/19 19:18 BUN/Creatinine Ratio 19 % 07/20/19 19:18 Glucose 219 mg/dL (75-100) H 07/20/19 19:18 Calcium 8.9 mg/dL (8.4-10.2) 07/20/19 19:18 Magnesium 2.40 mg/dL (1.7-2.3) H 07/20/19 19:18 Total Creatine Kinase 80 units/L (55-170) 07/20/19 19:18 CK-MB (CK-2) 2.0 ng/mL (0.0-4.0) 07/20/19 19:18 CK-MB (CK-2) Rel Index 2.5 (0-4) 07/20/19 19:18 Troponin T < 0.010 ng/mL (0.00-0.029) 07/20/19 19:18 TSH 2.950 mlU/mL (0.270-4.200) 07/20/19 19:18 Assessment and Plan Assessment and plan: 73-year-old male with history of paroxysmal atrial fibrillation, hypertension, diabetes who presents to [facility] ED with complaints of shortness of breath and palpitation for the last 3 days. Paroxysmal atrial fibrillation -History of A. 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 amiodarone 200 mg daily per cardiology recs HTN -Monitor BP -Resume home hypertensive meds DM -POC BG monitoring -Resume Metformin home dose -SSI coverage prn -HgbA1C pending Obesity -BMI 39.5kg -Diet and lifestyle modifications -May benefit from OP weight mgmt program DVT PPX -On Heparin -On SCD's Advance Directives: No VTE prophylaxis?: Chemical Plan of care discussed with patient/family: Yes <SHAHEED MCGOWAN - Last Filed: 07/21/19 03:12> History of Present Illness Date of admission: 07/20/19 22:30 Medications and Allergies Active Meds: Active Medications Acetaminophen (Tylenol) 650 mg PO Q4H PRN PRN Reason: Pain MILD(1-3)/Fever >100.5/CAMP Albuterol (Proventil) 2.5 mg IH Q3HRT PRN PRN Reason: Shortness Of Breath Amiodarone HCl (Cordarone) 200 mg PO DAILY [facility] Dextrose (D50w (25gm) Syringe) 0 ml IV Q30MIN PRN; Protocol PRN Reason: Hypoglycemia Docusate Sodium (Colace) 100 mg PO BID [facility] Enoxaparin Sodium (Enoxaparin) 110 mg 1 mg/kg (110 mg) SUB-Q Q12H [facility] Insulin Human Lispro (Humalog) 0 unit SUB-Q ACHS ERIN; Protocol Metformin HCl (Glucophage) 500 mg PO TIDWM [facility] Ondansetron HCl (Zofran) 4 mg IV Q8H PRN PRN Reason: Nausea And Vomiting Sodium Chloride (Sodium Chloride Flush Syringe 10 Ml) 10 ml IV BID ER[facility] Sodium Chloride (Sodium Chloride Flush Syringe 10 Ml) 10 ml IV PRN PRN PRN Reason: LINE FLUSH Exam - Constitutional Vitals: Temp Pulse Resp BP Pulse Ox 97.4 F L 55 L 16 114/62 99 07/21/19 01:20 07/21/19 01:20 07/21/19 01:20 07/21/19 01:20 07/21/19 01:20 Results - Labs CBC & Chem 7: 07/20/19 19:18 07/20/19 19:18 Labs: Laboratory Last Values WBC 6.9 K/mm3 (4.5-11.0) 07/20/19 19:18 RBC 4.89 M/mm3 (3.65-5.03) 07/20/19 19:18 Hgb 15.4 gm/dl (11.8-15.2) H 07/20/19 19:18 Hct 44.8 % (35.5-45.6) 07/20/19 19:18 MCV 92 fl (84-94) 07/20/19 19:18 MCH 31 pg (28-32) 07/20/19 19:18 MCHC 34 % (32-34) 07/20/19 19:18 RDW 14.0 % (13.2-15.2) 07/20/19 19:18 Plt Count 222 K/mm3 (140-440) 07/20/19 19:18 Lymph % (Auto) 33.3 % (13.4-35.0) 07/20/19 19:18 [place] % (Auto) 10.1 % (0.0-7.3) H 07/20/19 19:18 Eos % (Auto) 2.4 % (0.0-4.3) 07/20/19 19:18 Baso % (Auto) 0.4 % (0.0-1.8) 07/20/19 19:18 Lymph # 2.3 K/mm3 (1.2-5.4) 07/20/19 19:18 [place] # 0.7 K/mm3 (0.0-0.8) 07/20/19 19:18 Eos # 0.2 K/mm3 (0.0-0.4) 07/20/19 19:18 Baso # 0.0 K/mm3 (0.0-0.1) 07/20/19 19:18 Seg Neutrophils % 53.8 % (40.0-70.0) 07/20/19 19:18 Seg Neutrophils # 3.7 K/mm3 (1.8-7.7) 07/20/19 19:18 PT 12.6 Sec. (12.2-14.9) 07/20/19 19:18 INR 0.93 (0.87-1.13) 07/20/19 19:18 Sodium 136 mmol/L (137-145) L 07/20/19 19:18 Potassium 4.6 mmol/L (3.6-5.0) 07/20/19 19:18 Chloride 97.9 mmol/L (98-107) L 07/20/19 19:18 Carbon Dioxide 27 mmol/L (22-30) 07/20/19 19:18 Anion Gap 16 mmol/L 07/20/19 19:18 BUN 15 mg/dL (9-20) 07/20/19 19:18 Creatinine 0.8 mg/dL (0.8-1.5) 07/20/19 19:18 Estimated GFR > 60 ml/min 07/20/19 19:18 BUN/Creatinine Ratio 19 % 07/20/19 19:18 Glucose 219 mg/dL (75-100) H 07/20/19 19:18 Hemoglobin A1c 8.6 % (4-6) H 07/20/19 00:30 Calcium 8.9 mg/dL (8.4-10.2) 07/20/19 19:18 Magnesium 2.40 mg/dL (1.7-2.3) H 07/20/19 19:18 Total Creatine Kinase 80 units/L (55-170) 07/20/19 19:18 CK-MB (CK-2) 2.0 ng/mL (0.0-4.0) 07/20/19 19:18 CK-MB (CK-2) Rel Index 2.5 (0-4) 07/20/19 19:18 Troponin T < 0.010 ng/mL (0.00-0.029) 07/20/19 22:30 TSH 2.950 mlU/mL (0.270-4.200) 07/20/19 19:18 Assessment and Plan Assessment and plan: Patient seen and examined, discussed with nurse practitioner, agree with plan as stated above except DC Lopressor. Patient became bradycardic after amiodarone which was given in the emergency room and became symptomatic, responded well to atropine. Also check cardiac enzymes, start full dose Lovenox, DC heparin subcu, check echo.
[2019-07-20] MEDS ORDERED: ATROPINE 1 MG/ML VIAL IV ONE (23:46)
[2019-07-20] MEDS ORDERED: ATROPINE 0.1% (1 MG/10 ML) CARDIAC SYRINGE ONE (23:51)
[2019-07-21] MEDS: ENOXAPARIN 80 MG/0.8 ML INJ SUB-Q SCH ×2 (04:49→16:32)
[2019-07-21] MEDS: ENOXAPARIN 30 MG/0.3 ML INJ SUB-Q SCH ×2 (04:49→16:32)
[2019-07-21] MEDS: metFORMIN 500 MG TAB PO SCH ×2 (08:00→12:14)
--- NOTE | 2019-07-21 09:31 | Consultation ---
History of Present Illness Consult date: 07/21/19 Consult reason: atrial fibrillation History of present illness: This is a 74-year old male who presents with feeling fatigued and dizzy, admitted with symptomatic atrial fibrillation. He was treated with intravenous amiodarone in the emergency department and he has since reverted to sinus rhythm. Cardiac consultation has been requested. Cardiac history notable of paroxysmal atrial fibrillation. Previously recommended eliquis for oral anticoagulation therapy but the patient reports this was discontinued by his primary extracorporeal technician, late 2017. It would be noted he was seen in the emergency department in April with symptomatic atrial fib rillation. At that time he was discharged home on oral eliquis but he never filled the prescription. His latest cardiac evaluation was done at this hospital just over a year ago. An echocardiogram showed well-preserved left ventricular systolic function, ejection fraction 50-55%. Further evaluation with a cardiac catheterization reports no significant coronary artery disease, ejection fraction 50-55%. Past History Past Medical History: atrial fib (Paroxysmal), diabetes, hypertension Past Surgical History: Other (right ankle surgery ) Social history: , full code. denies: smoking, alcohol abuse Family history: no significant family history Medications and Allergies Allergies Allergy/AdvReac Type Severity Reaction Status Date / Time simvastatin Allergy Nausea Verified 03/28/18 05:43 Home Medications Medication Instructions Recorded Confirmed Last Taken Type Ascorbic Acid [Vitamin C] 1,000 mg PO QDAY 03/28/18 07/21/19 Unknown History Cetirizine HCl [ZyrTEC 10mg cap] 10 mg PO QDAY 03/28/18 07/21/19 Unknown History Cholecalciferol (Vitamin D3) 2,000 units PO QDAY 03/28/18 07/21/19 Unknown History [Vitamin D3 2,000 UNIT CAP] Cyanocobalamin (Vitamin B-12) 1,000 mcg PO QDAY 03/28/18 07/21/19 Unknown History [Vitamin B-12] Folic Acid [Folvite] 800 mcg PO QDAY 03/28/18 07/21/19 Unknown History Glucosam/Chavez-Msm1/C/Ezra/Bosw 1,500 mg PO QDAY 03/28/18 07/21/19 Unknown History [Glucosamine-Chondroitin Tablet] Magnesium Citrate 200 mg PO TID 03/28/18 07/21/19 Unknown History Multivit with Minerals/Lutein [Pub 1 tab PO QDAY 03/28/18 07/21/19 Unknown History Multivitamin 50 Plus Tab] [place]-3 Fatty Acids/Fish Oil [Fish 1,000 mg PO TID 03/28/18 07/21/19 Unknown History Oil] Ubidecarenone [Coq-10] 10 mg PO QDAY 03/28/18 07/21/19 Unknown History Vit A/Vit C/Vit E/Zinc/Copper 1 tab PO BID 03/28/18 07/21/19 Unknown History [Icaps Areds Formula Dr Tablet] Vit B6/Me-Thfolate/Me-B12/Ala 50 mg PO QDAY 03/28/18 07/21/19 Unknown History [Podiapn Capsule] Vitamin E 400 unit PO QDAY 03/28/18 07/21/19 Unknown History lisinopriL [Prinivil] 10 mg PO QDAY 03/28/18 07/21/19 Unknown History metFORMIN [Glucophage] 500 mg PO TID 03/28/18 07/21/19 Unknown History Metoprolol [Lopressor TAB] 12.5 mg PO BID #60 tablet 05/09/19 07/21/19 Unknown Rx Amiodarone [Cordarone 200 MG TAB] 200 mg PO DAILY #30 tablet 07/21/19 Unknown Rx Apixaban [Eliquis] 5 mg PO Q12H #60 tablet 07/21/19 Unknown Rx Active Meds: Active Medications Acetaminophen (Tylenol) 650 mg PO Q4H PRN PRN Reason: Pain MILD(1-3)/Fever >100.5/CAMP Albuterol (Proventil) 2.5 mg IH Q3HRT PRN PRN Reason: Shortness Of Breath Amiodarone HCl (Cordarone) 200 mg PO DAILY [facility] Dextrose (D50w (25gm) Syringe) 0 ml IV Q30MIN PRN; Protocol PRN Reason: Hypoglycemia Docusate Sodium (Colace) 100 mg PO BID [facility] Enoxaparin Sodium (Enoxaparin) 30 mg SUB-Q Q12H [facility] Last Admin: 07/21/19 04:49 Dose: 30 mg Documented by: Enoxaparin Sodium (Enoxaparin) 80 mg SUB-Q Q12H [facility] Last Admin: 07/21/19 04:49 Dose: 80 mg Documented by: Insulin Human Lispro (Humalog) 0 unit SUB-Q ACHS ERIN; Protocol Metformin HCl (Glucophage) 500 mg PO TIDWM [facility] Ondansetron HCl (Zofran) 4 mg IV Q8H PRN PRN Reason: Nausea And Vomiting Sodium Chloride (Sodium Chloride Flush Syringe 10 Ml) 10 ml IV BID ERIN Sodium Chloride (Sodium Chloride Flush Syringe 10 Ml) 10 ml IV PRN PRN PRN Reason: LINE FLUSH Physical Examination Vital Signs Temp Pulse Resp BP Pulse Ox 97.3 F L 100 H 16 120/76 100 07/20/19 18:46 07/20/19 18:46 07/20/19 18:46 07/20/19 18:46 07/20/19 18:46 General appearance: no acute distress HEENT: Positive: PERRL Neck: Positive: trachea midline Cardiac: Positive: Bradycardia Lungs: Positive: Decreased Breath Sounds Neuro: Positive: Grossly Intact Results 07/20/19 19:18 07/20/19 19:18 Cardiac Enzymes 07/20/19 Range/Units 19:18 CK-MB (CK-2) 2.0 (0.0-4.0) ng/mL Coagulation 07/20/19 Range/Units 19:18 PT 12.6 (12.2-14.9) Sec. INR 0.93 (0.87-1.13) CBC 07/20/19 Range/Units 19:18 WBC 6.9 (4.5-11.0) K/mm3 RBC 4.89 (3.65-5.03) M/mm3 Hgb 15.4 H (11.8-15.2) gm/dl Hct 44.8 (35.5-45.6) % Plt Count 222 (140-440) K/mm3 Lymph # 2.3 (1.2-5.4) K/mm3 [place] # 0.7 (0.0-0.8) K/mm3 Eos # 0.2 (0.0-0.4) K/mm3 Baso # 0.0 (0.0-0.1) K/mm3 Comprehensive Metabolic Panel 07/20/19 Range/Units 19:18 Sodium 136 L (137-145) mmol/L Potassium 4.6 (3.6-5.0) mmol/L Chloride 97.9 L (98-107) mmol/L Carbon Dioxide 27 (22-30) mmol/L BUN 15 (9-20) mg/dL Creatinine 0.8 (0.8-1.5) mg/dL Glucose 219 H (75-100) mg/dL Calcium 8.9 (8.4-10.2) mg/dL Assessment and Plan - Patient Problems (1) Paroxysmal A-fib Current Visit: Yes Status: Acute Plan to address problem: Paroxysmal Afib currently sinus rhythm on telemetry. previously recommended eliquis for oral anticoagulation therapy but the patient reports this was discontinued by his primary extracorporeal technician late 2017. echocardiogram done 03/2018 showed well-preserved left ventricular systolic function, ejection fraction 50-55%. [facility] catheterization 03/2018 reports no significant coronary artery disease, ejection fraction 50-55%.
[2019-07-21 09:44] VITALS: BP 111/56
[2019-07-21] MEDS: INSULIN LISPRO 100 UNIT/ML SUB-Q SCH ×2 (09:57→12:15)
[2019-07-21] MEDS: AMIODARONE 200 MG TAB PO SCH ×2 (09:58→10:04)
[2019-07-21] MEDS ORDERED: DOCUSATE SODIUM 100 MG CAP PO SCH (10:00)
[2019-07-21] MEDS ORDERED: METOPROLOL TARTRATE 25 MG TAB PO SCH (10:00)
[2019-07-21] MEDS ORDERED: HEPARIN 5,000 UNIT/1 ML VIAL SUB-Q SCH (10:00)
[2019-07-21 10:53] LABS: Creatine Kinase MB 1.7 ng/mL (0.0-4.0)
--- NOTE | 2019-07-21 13:39 | Discharge Summary ---
Providers - Providers Date of Admission: 07/20/19 22:30 Attending physician: JAMIN RAMIREZ MD 07/20/19 22:02 Consult to Physician [CONS] Stat Comment: Consulting Provider: PATRIA OLEARY Physician Instructions: Reason For Exam: symptomatic PAF Primary care physician: JAY SHAH Hospitalization Condition: Fair Hospital course: ok to discharge per cardiology cardiology wants amidaorone 2oomg Eliquis 5mg bid and asa daily and follow with Dr Stokes Disposition: DC-01 TO HOME OR SELFCARE Exam - Constitutional Vitals: Temp Pulse Resp BP Pulse Ox 97.7 F 51 L 16 111/56 94 07/21/19 05:08 07/21/19 05:08 07/21/19 05:08 07/21/19 05:08 07/21/19 05:08 Plan Activity: advance as tolerated, fall precautions Diet: low salt Special Instructions: record daily weights, record daily BP diary Follow up with: FABIAN PETERSONSTANISLAVPOUGHKEEPSIE MD ROJELIO [Referring] - 3-5 Days JEANNETTE STOKES MD [Staff Physician] - 7 Days Prescriptions: Amiodarone [Cordarone 200 MG TAB] 200 mg PO DAILY #30 tablet Apixaban [Eliquis] 5 mg PO Q12H #60 tablet
== END 2019-07-21 17:01 | disposition home or self-care (01) ==
LOC: ED 18:32 → 4A 22:30 → INTOOBSV 22:30 → 4A 23:15
PROVIDERS: ADMIT Internal Medicine; ATTEND Internal Medicine
DX: I48.0 Paroxysmal atrial fibrillation (principal); I10 Essential (primary) hypertension; E11.9 Type 2 diabetes mellitus without complications; E66.9 Obesity, unspecified; Z68.39 Body mass index [BMI] 39.0-39.9, adult; Z79.82 Long term (current) use of aspirin; Z79.84 Long term (current) use of oral hypoglycemic drugs
CPT/HCPCS: 36415; 80048; 82550; 82553; 82962; 83036; 83735; 84443; 84484; 85025; 85610; 87116; 93005; 93010; 96372; 96374; 96375; 99284; G0378; J0282; J0461; J1650